=== PATIENT | male | born 1995 | race Hispanic/Latino ===

== ENCOUNTER 2016-08-15 13:23 | Observation (INO) | payer OTHER ==
[~2016-08-15] VITALS: Ht 177.8 cm; Wt 118.2 kg
[2016-08-15] VITALS (11 sets, daily range): BP systolic 115–143; BP diastolic 54–86; PULSE 72–123; RESP 10–24; O2SAT 97–100
[2016-08-15 14:36] LABS: BASOPHILS % (AUTO) 0.2 % (0-3); EOSINOPHILS % (AUTO) 0.2 % (0-5); MONOCYTES % (AUTO) 5.2 % (4-12); Mean Corpuscular Hemoglobin 29.2 pg (27.0-35.0); Mean Corpuscular Volume 82.5 fL (81-100); NEUTROPHILS % (AUTO) 81.9 % (40-74); Platelet Count 290 bil/L (150-400)
[2016-08-15 14:51] LABS: Magnesium 1.8 mg/dL (1.6-2.6)
[2016-08-15] MEDS ORDERED: Piperacillin-Tazo 3.375 Gm Inj 3.375 GM in Dextrose 5% Minibag Plus 50 ML IV ONE (16:10)
--- NOTE | 2016-08-15 16:12 | DRSVH ---
PROCEDURE: CT ABDOMEN AND PELVIS WITH CONTRAST ([id number]) INDICATIONS: rlq pain TECHNIQUE: After the administration of intravenous contrast, 5 mm thick sections acquired from the diaphragm to the symphysis. 5 mm coronal and sagittal reformats were acquired. For radiation dose reduction, the following was used: automated exposure control, adjustment of mA and/or kV according to patient siz e. COMPARISON: None. FINDINGS: Image quality: Excellent. ABDOMEN: Lung bases: Lung bases are clear. Heart size is normal. Solid organs: Liver and spleen are normal in size and enhancement. Gallbladder negative. Biliary s ystem is non dilated. Pancreas enhances normally. No adrenal nodules. Kidneys demonstrate normal s ize and enhancement, without hydronephrosis. Peritoneum and bowel: Mild cecal wall thickening is seen. The appendix is markedly enlarged measuring up to 16mm diameter, and there is periappendiceal fat stranding. No definite free air. There are mul tiple pedicles measuring up to 1.3 cm. No abscess is seen. Mild pericecal and right lower quadrant in flammatory stranding Nodes and vessels: No retroperitoneal or mesenteric adenopathy by size criteria. Aorta and inferior vena cava are normal in size. Miscellaneous: No ventral hernias. PELVIS: Genitourinary: Bladder wall thickness is normal. Miscellaneous: No inguinal hernias or adenopathy. Bones: No suspicious bony lesions. No vertebral body compression fractures. IMPRESSION: Acute appendicitis, with multiple associated large appendicoliths as detailed above. No f ree air or abscess. Findings were personally telephoned to Dr. Morales in the emergency department 1 611 hours 08/15/16 Dictated by: Gopi Irizarry M.D. on 08/15/2016 at 16:04 Approved by: Gopi Irizarry M.D. on 08/15/2016 at 16:11
[2016-08-15] MEDS ORDERED: 0.9% Sodium Chloride 1,000 ML IV SCH ×2 (16:25)
--- NOTE | 2016-08-15 16:32 | ED.REPORT ---
HPI-Abd Pain M Under 40 Date of Service Aug 15, 2016 ED Provider: Ronen Morales DO History of Present Illness: Patient is a 20 y.o. M otherwise healthy with a three day history of worsening abdominal pain. Pain localized to epigastrum and right upper quadrant, described as cramping type pain without radiation, rated 6/10, made better by throwing up, made worse by bending and putting pressure on stomach. Patient ahs tried ibuprofen with minimal relef. Denies blood in stool, constipation, diarrhea, fever, chills, night sweats, cough, runny nose, no reported sick contacts Nursing Notes Stated Complaint: STOMACH PAIN Chief Complaint: Male Abdominal Pain Allergies: Coded Allergies: No Known Allergies (Unverified , 08/15/16) No Active Prescriptions or Reported Meds General Time Seen by MD: 14:15 Chief Complaint Abdominal pain Hx Obtained From: Patient Arrived By: Walk-in Onset Occurred: 3 days ago Progression since Onset: Constant, Intermittent Location: : Abdomen upper Quality: Cramping Severity: Current: Pain level 6 out of 10 Severity: Maximum: Pain level 9 out of 10 Associated with: Reports: Anorexia, Nausea, Vomiting Past Medical History Past Medical History None reported Past Surgical History None reported Review of Systems Basic Review of Systems Eyes: Vision NL, No discharge ENT: Hearing NL, No pain, No nasal congestion, No pharyngeal pain Hematologic: No bleeding, No bruising Skin: No bruising, No rash, No itch Neurologic: NL mental status, No weakness, No numbness Psychiatric: Normal thought content Constitutional: Reports: Chills, Fatigue, Denies: Fever Respiratory: Denies: Dyspnea on exertion, Hemoptysis Cardiovascular: Denies: Chest pain GI: Reports: Abdominal pain (diffuse), Anorexia, Nausea, Denies: Bloody/tarry stool, Constipation, Diarrhea, Hematochezia, Melena, Rectal pain, Vomiting Complete sys rev & neg: except as marked. Physical Exam Initial Vital Signs Vital Signs (First) Date Time Temp Pulse Resp B/P Pulse Ox O2 Delivery O2 Flow Rate FiO2 08/15/16 13:28 36.3 72 10 138/81 99 Room Air Initial VS: Reviewed Head / Eyes: Atraumatic, Normocephalic, PERRL ENT: Mucous membranes moist, Conjunctiva normal, No scleral icterus Neck: Supple, Non-tender, Full range of motion Lymphatic: No lymphadenopathy Extremities: Vascular intact, Neuro intact, No swelling, No tenderness Skin: Warm, Dry, No cyanosis Neurologic: Alert, Oriented, Nonfocal Psychiatric: Mood/affect normal, Behavior normal, Normal thought content General/Constitutional: Awake, Alert, No acute distress, Well appearing Respiratory / Chest: Breath sounds NL, Breath sounds = bilat, No respiratory distress, No rales, No rhonchi, No wheezing, No stridor Cardiovascular: Heart rate NL, Regular rhythm, Heart sounds NL, Peripheral circulation NL Abdomen: Soft Tenderness/Guarding/Rebound: Positive: Guarding involuntary, Rebound diffuse, Tender RLQ... (Mild), Tender epigastric, Negative: Ruggiero's sign positive Organomegaly / Mass / Hernia: Negative: Hepatomegaly, Splenomegaly Interpretation & Diagnostics Lab Results Interpretation Result Diagram: 08/15/16 1415 08/15/16 1415 Test 08/15/16 14:15 08/15/16 15:11 White Blood Count 12.0th/mm3 (3.8-10.1) Red Blood Count 4.73mil/mm3 (4.40-5.80) Hemoglobin 13.8g/dL (13.8-17.2) Hematocrit 39.0% (41.0-50.0) Mean Corpuscular Volume 82.5fL (81-100) Mean Corpuscular Hemoglobin 29.2pg (27.0-35.0) Mean Corpuscular Hemoglobin Concent 35.4% (32.0-37.0) Red Cell Distribution Width 13.1% (12.3-15.4) Platelet Count 290bil/L (150-400) Neutrophils (%) (Auto) 81.9% (40-74) Lymphocytes (%) (Auto) 12.3% (14-46) Monocytes (%) (Auto) 5.2% (4-12) Eosinophils (%) (Auto) 0.2% (0-5) Basophils (%) (Auto) 0.2% (0-3) Sodium Level 140mEq/L (134-144) Potassium Level 4.0mEq/L (3.5-5.2) Chloride Level 100mEq/L (97-108) Carbon Dioxide Level 24mmol/L (18-29) Blood Urea Nitrogen 13mg/dL (6-20) Creatinine 0.58mg/dL (0.76-1.27) Estimat Glomerular Filtration Rate 186mL/min (>59) Glucose Level 151mg/dL (60-99) Calcium Level 8.9mg/dL (8.5-10.1) Magnesium Level 1.8mg/dL (1.6-2.6) Total Bilirubin 0.6mg/dL (0.0-1.2) Aspartate Amino Transf (AST/SGOT) 28U/L (0-50) Alanine Aminotransferase (ALT/SGPT) 36U/L (0-44) Alkaline Phosphatase 58U/L (25-150) Total Protein 7.6g/dL (6.4-8.4) Albumin 4.6g/dL (3.4-5.0) Lipase 17U/L (13-60) Hold Urine Received (Received) Re-Eval/Medical Decision Med Decision/Clinical Course Patient is a 20 y.o. M otherwise healthy with a three day history of worsening abdominal pain. Pain localized to epigastrum and right upper quadrant, described as cramping type pain without radiation, rated 6/10, made better by throwing up, made worse by bending and putting pressure on stomach. DDx Gastroenteritis, Apendicitis, constipation, IBS, pancreatitis CBC showed elevated white count 12 CMP, normal CT scan Abdomen and pelvis showed signs of acute apendicitis with fecoliths present in appendix. Attending note. I saw and personally examined this patient. On clinical exam he has right lower quadrant rebound with guarding. Highly suspicious for appendicitis. CT confirms the diagnosis. Patient will go to surgery. Consultation : Referral / Consult Name: NicMisha dominguez MD Consulted With: Surgeon Requested Call at: 04:20 Call Returned at: 04:25 Orthopedic Assistant: Will see patient, Agrees with eval, Requested OR, Accepts admit Differential Diagnosis: Positive: Appendicitis Patient Discharge & Departure Primary Impression: Acute appendicitis Disposition: ADMITTED TO HOSPITAL Referrals: NOPCP (PCP) Attending Statement The patient was seen and examined together with Dr. Eid on 08/15/16 and I have added additional information to the note above. JAZMÍN EID DO Aug 15, 2016 14:29 ORonen Khan DO Aug 15, 2016 17:57
[2016-08-15] MEDS ORDERED: HYDROmorphone 1 mg/mL Inj IM PRN (16:45)
[2016-08-15] MEDS ORDERED: fentaNYL-PF 50 mCg/mL 2 mL Inj ONE (17:15)
[2016-08-15] MEDS ORDERED: Ketamine 10 mg/mL 20 mL Inj ONE (17:15)
[2016-08-15] MEDS ORDERED: Remifentanil 1 mg/3 mL Inj ONE (17:15)
[2016-08-15] MEDS ORDERED: Ondansetron 2 mg/mL 2 mL Inj IVPUSH PRN ×2 (17:20→20:20)
--- NOTE | 2016-08-15 17:45 | NUR ---
Admit Nurse Note Admission assessment completed in the ER. Pt. c/o 12/14 abdominal pain, which he says is tolerable at this time. Girlfriend and relative at the bedside. Pt. is high risk for sleep apnea. Protocol to be initiated upon arrival to unit as pt. is waiting imminent surgery at this time. NKA verified. Pt. declines vaccination. Gordy Maciel notified of pt. condition. Addendum: 08/15/16 at 2128 by VIOLETTA WATSON RN Report given to Reena Godoy who states she will start oximetry per protocol.
--- NOTE | 2016-08-15 18:00 | HP ---
[address] [address] HISTORY AND PHYSICAL PATIENT: LAURA CAVAZOS : 1995 MR#: [id number] ADMIT: 08/15/2016 JOB ID: [id number] DATE OF SERVICE: 08/15/2016 REASON FOR CONSULTATION: The patient is seen in consultation at the request of Dr. Ronen Alvares regarding further evaluation and management of acute appendicitis. HISTORY OF PRESENT ILLNESS: The patient is a 20-year-old man who presented to the emergency department today with complaint of right lower quadrant abdominal pain. He tells me that he started feeling lousy yesterday but the pain became significantly intensified today. He has had anorexia as well. He came to the emergency department and was found to have a leukocytosis of 12. A CT scan of the abdomen and pelvis was obtained which I personally reviewed and shows a very dilated appendix with a number of fecaliths that suggests an acute appendicitis. PAST MEDICAL HISTORY: None. PAST SURGICAL HISTORY: None. MEDICATIONS: None. ALLERGIES: The patient has no known drug allergies. FAMILY HISTORY: Reviewed and unremarkable. REVIEW OF SYSTEMS: Positive for abdominal pain and anorexia and is otherwise negative. PHYSICAL EXAMINATION: The patient is afebrile temp 36.7 degrees, heart rate of 85 beats per minute, blood pressure 143/86. He is satting 99% on room air with a respiratory rate of 18 breaths per minute. In general, he appears mildly uncomfortable, in no acute distress. Cardiovascular: Regular rate and rhythm. No appreciated murmurs, rubs, gallops. Pulmonary: Lungs clear to auscultation bilaterally. Vascular: No carotid bruit. Neck: No thyromegaly. No cervical lymphadenopathy. GI: Abdomen is soft and nondistended. He has exquisite tenderness to palpation in the right lower quadrant. Extremities: Warm, without significant edema. Skin: Warm, without rash. Neuro: Grossly intact. Psych: Pleasant, appropriate. LABORATORIES: His white blood cell count is 12, his hematocrit is 39, his platelet count is 290. His creatinine is 0.58. Glucose was 151. ASSESSMENT/PLAN: This is a 20-year-old man with acute appendicitis with fecalith. I discussed the diagnosis with the patient with his family. I recommend laparoscopic appendectomy. The technical and convalescent aspects of surgery, as well as potential risks and complications, were reviewed. This will be done as soon as possible.
[2016-08-15] MEDS ORDERED: Lactated Ringer's 1,000 ML IV ONE ×2 (18:08→19:10)
--- NOTE | 2016-08-15 18:08 | PCM.HPANE ---
Patient Data Surgeon Admitting Provider:Misha Lucero MD Attending Provider:Misha Lucero MD Primary Care Physician:Fabian Other Provider:Charisse Garcia Anesthesia Reason for Visit Acute Appendicitis Ht/WT & BMI Height (Feet): 5 Height (Inches): 10 Weight (Kilograms): 118.18 Body Mass Index Allergies Coded Allergies: No Known Allergies (Unverified , 08/15/16) Past Anesthesia History Anesthesia History: Denies:: Abnormal Airway, Anesthesia Reactions, Difficult Intubation Diabetes History Hx Diabetes?: No MRSA MRSA: No Medications Hypertension Medication: No No Active Prescriptions or Reported Meds History History of ENT Problems?: No HEENT History: Denies:: Abnormal Airway Difficult Intubation Hx of Heart Problems?: No Cardiovascular History: Denies:: Congestive Heart Failure Hypertension Hx of Respiratory Problem?: No Respiratory History: Denies:: Tuberculosis Hx Neurologic Problems?: No Hx of GI Problems?: No Hx of Problems?: No Male Hx: Denies:: Prostate Problems Scrotal Mass Testicular Surgery Hx Musculoskeletal Problems?: No Hx of Psycho/Social Problems?: No Hx Surgeries?: No Hx Any Other Health Problems?: No Other History: Denies:: Cancer Hospitalization Thyroid Disease History Blood Transfusions: Positive for:: Accept Blood Products? Denies:: Blood Transfusions Hx Diabetes: No Hx Alcohol Use: Yes (occasional)Hx Substance Use: Yes (marijuana) Smoking Status: Never Smoker Have You Smoked inLast 12 mo: No Stop/Bang Treated for Sleep Apnea?: No Do You Have a CPAP Machine?: No S-Snoring: Do You Snore Loudly: Yes T-Tired: feel tired, fatigued: Yes O-Obsered: Observed not breath: Yes P-Blood Pressure: treated: No B- Body Mass Index > 35 kg/m2: No A- Age over 50: No N- Neck Large Circumference: Yes G- Gender Male: Yes BROOKLYNN Total Score: 5 BROOKLYNN Risk Assessment: High Risk, =/>3 Yes BROOKLYNN Category 4 OutPt Procedure: Yes Risk Assessment Category Category 1A: Patient has history of documented sleep apnea, and HAS NOT received any narcotic, sedative or anesthesia administration during this stay. Category 1B: Patient has history of documented sleep apnea, and HAS received any narcotic , sedative or anesthesia administration during this stay Category 2: Patient has SUSPECTED Obstructive Sleep Apnea, and HAS received any narcotic , sedative or anesthesia administration during this stay. Category 3: Patient has SUSPECTED Obstructive Sleep Apnea and HAS NOT received narcotic, sedative or anesthesia administration during this stay. Category 4: Outpatient in Procedural Areas with known sleep apnea or who screen positive for High Risk via the STOP/BANG questionnaire. Exam Exam Vital Signs Vital Signs Date Time Temp Pulse Resp B/P Pulse Ox O2 Delivery O2 Flow Rate FiO2 08/15/16 16:34 36.7 85 18 143/86 99 Room Air 08/15/16 13:28 36.3 72 10 138/81 99 Room Air General Appearance: Alert, Oriented X3, Cooperative, No Acute Distress HEENT/AIRWAY: MP 2 Lungs: Clear to Auscultation, Normal Air Movement Heart: Exam Unremarkable, Regular Rate/Rhythm, No Murmurs/Rubs/Gallops Meds/Labs/Diagnostics Admission Meds Current Medications Piperacillin Sod/ Tazobactam Sod 3.375 gm/Dextrose/ Water 50 ml @ 100 mls/hr ONCE ONCE IV Last administered on 08/15/16 16:36; Start 08/15/16 at 16:10; Stop 08/15/16 at 16:39; Status DC Sodium Chloride 1,000 ml @ 0 mls/hr Q0M IV Last administered on 08/15/16 16:30 ; Start 08/15/16 at 16:25 Sodium Chloride (Normal Saline) 1,000 ml @ 200 mls/hr Q5H IV Last administered on 08/15/16 17:10; Start 08/15/16 at 16:25 Labs Test 08/15/16 14:15 08/15/16 15:11 White Blood Count 12.0th/mm3 (3.8-10.1) Red Blood Count 4.73mil/mm3 (4.40-5.80) Hemoglobin 13.8g/dL (13.8-17.2) Hematocrit 39.0% (41.0-50.0) Mean Corpuscular Volume 82.5fL (81-100) Mean Corpuscular Hemoglobin 29.2pg (27.0-35.0) Mean Corpuscular Hemoglobin Concent 35.4% (32.0-37.0) Red Cell Distribution Width 13.1% (12.3-15.4) Platelet Count 290bil/L (150-400) Neutrophils (%) (Auto) 81.9% (40-74) Lymphocytes (%) (Auto) 12.3% (14-46) Monocytes (%) (Auto) 5.2% (4-12) Eosinophils (%) (Auto) 0.2% (0-5) Basophils (%) (Auto) 0.2% (0-3) Sodium Level 140mEq/L (134-144) Potassium Level 4.0mEq/L (3.5-5.2) Chloride Level 100mEq/L (97-108) Carbon Dioxide Level 24mmol/L (18-29) Blood Urea Nitrogen 13mg/dL (6-20) Creatinine 0.58mg/dL (0.76-1.27) Estimat Glomerular Filtration Rate 186mL/min (>59) Glucose Level 151mg/dL (60-99) Calcium Level 8.9mg/dL (8.5-10.1) Magnesium Level 1.8mg/dL (1.6-2.6) Total Bilirubin 0.6mg/dL (0.0-1.2) Aspartate Amino Transf (AST/SGOT) 28U/L (0-50) Alanine Aminotransferase (ALT/SGPT) 36U/L (0-44) Alkaline Phosphatase 58U/L (25-150) Total Protein 7.6g/dL (6.4-8.4) Albumin 4.6g/dL (3.4-5.0) Lipase 17U/L (13-60) Hold Urine Received (Received) Plan Impression Patient chart reviewed, patient interviewed and anesthestic plan with risks, benefits, and alternatives discussed, and informed consent obtained. ASA Physical Status: ASA3 Plus Emergency (bmi 37) Anesthetic Plan: GA Bene/Risks/Altern/Consents: Yes HP Complete Prior to Induction: Yes Yoav Vasquez MD Aug 15, 2016 18:08
[2016-08-15] MEDS ORDERED: Bupivacaine-MPF 0.5% W/EPI 30 mL Inj INFILTRATE ONE (19:49)
[2016-08-15] MEDS ORDERED: Sodium Chloride LOK Flush 10 mL Syringe IVFLUSH PRN (20:20)
[2016-08-15] MEDS: Dextrose 5% Lactated Ringer's 1,000 ML IV SCH (21:19)
--- NOTE | 2016-08-15 21:29 | OP ---
[address] [address] OPERATIVE REPORT PATIENT: LAURA CAVAZOS : 1995 MR#: [id number] ADMIT: 08/15/2016 JOB ID: [id number] DATE OF SURGERY: 08/15/2016 ANESTHESIA: General. PREOPERATIVE DIAGNOSIS(ES): Acute appendicitis. POSTOPERATIVE DIAGNOSIS(ES): Acute nonperforated appendicitis. OPERATION: Laparoscopic appendectomy. SURGEON: Dr. Misha Lucero. INGOT BUGGY OPERATOR: Stas Domingo PA-C (the medical billing assistant was required for safe and timely completion of the case) and Dot Manzanares. COMPLICATIONS: None. ESTIMATED BLOOD LOSS: Minimal. CONDITION: Satisfactory. SPECIMEN: Appendix. FINDINGS: The appendix was obviously acutely inflamed, containing fecaliths but was not perforated. INDICATION/SIGNIFICANT HISTORY: The patient is a 20-year-old man who presents to the emergency department with complaint of abdominal pain. He was found to have leukocytosis and CT scan findings suggestive of acute appendicitis with three fecaliths in the base of the appendix. OPERATIVE TECHNIQUE: The patient was taken to the operating room and placed in supine position. General anesthesia was administered. Preoperative antibiotics were given. The abdomen was prepped and draped in standard surgical fashion. A procedural pause was performed. Entry was gained into the abdomen through a 5 mm Optiview trocar in the supraumbilical location. Pneumoperitoneum was achieved without complication. Local anesthetic was injected, followed by insertion of 5 mm ports in the left lower quadrant and one in the suprapubic region. Eventually, the suprapubic port was upsized to a 12 mm port. The appendix was easily visualized and acutely inflamed. The window was made at the base of the appendix through the mesoappendix. The appendix was then stapled up with the ROE 45 blue load. The mesoappendix was then stapled with a white load. There was a little bit of bleeding on the mesoappendix staple line which was controlled with electrocautery. The surgical bed was then irrigated and found to be hemostatic. The appendix was placed in an EndoCatch bag and removed through the 10 mm port site. The ports were then removed and pneumoperitoneum released. The skin was closed using 4-0 Monocryl. The entire procedure was well tolerated without complication.
[2016-08-15] MEDS: oxyCODONE-Acetamin 5-325 mg Tablet PO PRN (23:13)
[2016-08-16 00:19] VITALS: BP 107/58; PULSE 94; RESP 20; O2SAT 98
--- NOTE | 2016-08-16 01:49 | NUR ---
Arrival to unit Patient arrived to unit approx 2114 from PACU. Patient was sleepy, but easy to arouse, and was able to answer questions appropriately and follow commands. Patient was able to ambulate with SBA to hospital bed. Pt denies any pain at arrival, and during initial assessment. IV in Left AC is patent and has D5 LR @ 125/ hr infusing. CASER SHOE PARTS applied due to high BROOKLYNN score; patient is on RA. Urinal is being used for voiding. All 3 laparoscopic sites have steri strips, and band aids. Only the umbilical lap site presents with sanguinous drainage. Patient is tolerating ice chips, water, and jello. Call light within reach, and bed is locked and in low position. Will continue to monitor, and continue Q 1 hour checks.
[2016-08-16] MEDS: Dextrose 5% Lactated Ringer's 1,000 ML IV SCH (04:32)
[2016-08-16 04:49] VITALS: BP 119/68; PULSE 95; RESP 20; O2SAT 97
[2016-08-16] MEDS: oxyCODONE-Acetamin 5-325 mg Tablet PO PRN ×3 (05:02→12:41)
[2016-08-16 05:30] LABS: Mean Corpuscular Volume 83.7 fL (81-100)
[2016-08-16] MEDS ORDERED: OXYC1TAB24 PO (10:24)
--- NOTE | 2016-08-16 10:28 | PCM.DISURG ---
Surgical Discharge Instruction Date of Service Aug 16, 2016 Dates of Hospitalization Date of Hospital Admission Aug 15, 2016 at 17:14 Providers Admitting Physician: Misha Lucero MD Primary Care Physician: Nopcp Attending Physician: Misha Lucero MD Discharge Diagnosis Discharge Diagnosis Acute appendicitis Post Operative diagnosis Acute appendicitis s/p appendectomy Diet Discharge Diet: No restrictions Activity Discharge Activity-General: Try not to overdue, Be up and about, Balance rest and activity, Ice incision 3-5 time/day for 20min Dressing and Incisional Care Dressing Care: Keep dressing clean, dry & intact, Allow Steri Stripes to fall off Hygiene: May shower, DO NOT soak incision under water, NO bathtub, hot tub or whirlpool Additional Instructions Discharge Instructions take your pain medication sparingly only as needed. Follow Up Plan Follow Up Plan Follow up with surgical physicians warehouse administrative assistant in 2-3 weeks, please call the surgery clinic to schedule appointment Follow-up appointment: Weeks (2-3) Call your provider for: Fever, Chills, Shortness of breath, Increasing abdominal pain, Nausea, Vomiting, Wound redness, Increasing wound pain, Warmth to touch, Discharge @ incision, pus discharge Brandin Queen DO Aug 16, 2016 10:28
--- NOTE | 2016-08-16 10:38 | PCM.DC.SUR ---
Discharge Summary Date of Service: Aug 16, 2016 Date of Hospital Admission: Aug 15, 2016 at 17:14 Date of Operation(s): 08/15/16 Date of Discharge: 08/16/16 Diagnosis at Time of Discharge acute appendicitis s/p appendectomy Problems: (1) Acute appendicitis Status: Acute ICD Code: K35.80 Operation Laparoscopic appendectomy Brief History and Physical: Taken from HISTORY OF PRESENT ILLNESS composed by Dr. Misha Lucero on 08/15/16 The patient is a 20-year-old man who presented to the emergency department today with complaint of right lower quadrant abdominal pain. He tells me that he started feeling lousy yesterday but the pain became significantly intensified today. He has had anorexia as well. He came to the emergency department and was found to have a leukocytosis of 12. A CT scan of the abdomen and pelvis was obtained which I personally reviewed and shows a very dilated appendix with a number of fecaliths that suggests an acute appendicitis. Gen: pleasant cooperative young man A/O x3 in NAD HEENT: PERRL, EOMI, mucous membranes pink and moist Neck: Supple non tender, full ROM CV: RRR no murmurs rubs or gallops Resp: Lungs CTA BL, no wheezes rales or rhonchi Abd: Laparoscopic incisions without erythema, purulence, or drainage. appropriate post surgical tenderness Extr: no cyanosis clubbing or edema Neuro: CN 2-12 grossly intact, no focal neurologic deficit Psych: appropriate mood and affect. Hospital Course: Patient with CT findings as described above indicative of acute appendicitis requiring surgical intervention. He underwent uncomplicated laparoscopic appendectomy as described in the operative note. He had no issues in the recovery period and was discharged in good condition with a tolerable amount of pain on PO analgesia. Pathology: Path pending. Disposition: Home with no needs Follow-up Plan: Follow up with surgical physicians physician assistant primary care in 2-3 weeks. oxyCODONE-Acetaminophen 5-325 mg (oxyCODONE-Acetaminophen 5-325 mg) 1 Each Tablet 1-2 TAB PO Q6H PRN PRN For Pain Brandin Queen DO Aug 16, 2016 10:38
--- NOTE | 2016-08-16 11:03 | NUR ---
Social Work Discharge and Screen Note: SW acknowledged order for discharge. SW met with patient at bedside to discuss discharge plan. Patient is a 20 year old male admitted on 08/15/16 for acute appendicitis. Patient payer as [facility]. Patient has no senior care disability nor VA benefits. Patient states having no PCP history. Patient states residing in single story home with mother Shefali, . Patient has no previous HHC, SNF, DME, or AD history. Patient states pharmacy of choice as [facility]. Patient states being independent with needs and has no identified discharge needs at this time. SW to follow. PLAN:Home with mother via POV, pending clinical course Ayad NASH
--- NOTE | 2016-08-16 11:41 | PROG NOTE ---
[address] [address] PROGRESS NOTE PATIENT: LAURA CAVAZOS : 1995 MR#: [id number] ADMIT: 08/15/2016 JOB ID: [id number] DATE: 08/16/2016 SUBJECTIVE: The patient was seen postoperative day one. The patient underwent a laparoscopic appendectomy for acute nonperforated appendicitis last night. The case was uneventful. It was so late that I elected to keep him overnight. This morning he tells me he is feeling much better. OBJECTIVE: He has remained afebrile since surgery. He is hemodynamically normal this morning. He appears alert, oriented and comfortable. His abdomen is soft, nontender, nondistended. His incisions look fine. His white blood cell count is the same at 12.1. Hematocrit stable at 38.4. ASSESSMENT AND PLAN: This is a 20-year-old male, postoperative day one from laparoscopic appendectomy for acute nonperforated appendicitis. He is doing well. He can go home with pain medicines. He will follow up with surgical PA in the next two weeks.
--- NOTE | 2016-08-16 12:42 | NUR ---
Discharge Patient discharged home with family. Hard copy prescription given for pain med. Pt given verbal and written instructions and agreed to understanding them. Pt will call surgeons office to schedule follow up appointment as directed. Pt had all belongings with him.
--- NOTE | 2016-08-19 06:46 | PCM.ANEP1 ---
Post Anesthesia Phase 1 PACU Phase 1 Assessment Anesthetic Administered: GA Level of Alertness: Awake, talking KUMARI's with Equal Strength: No Pain: Yes (4) Pain Scale Score: 2 Nausea or Vomiting: No Oxygen Delivery: Simple Mask Lungs: Clear to Auscultation, Normal Air Movement Dermatome Level: Full Sensation Yoav Vasquez MD Aug 19, 2016 06:46
--- NOTE | 2016-08-19 06:46 | PCM.ANEP2 ---
Post Anesthesia Evaluation ASA/CMS Post Anesthesia VS in Patient's Normal Range?: Yes Resp Stable; Airway Patent?: Yes CV Function & Hydration Stable: Yes Mental Status Recovered?: Yes Pain control Satisfactory?: Yes N/V Control Satisfactory?: Yes Yoav Vasquez MD Aug 19, 2016 06:46
--- NOTE | 2016-08-20 10:00 | PATH ---
SURGICAL PATHOLOGY Attending Physician:Misha Lucero MD CASE STATUS: Signed Out PATIENT NAME: LAURA CAVAZOS PID: [id number] : 1995 DATE COLLECTED:08/15/2016 00:00 SPECIMEN: Appendix CLINICAL HISTORY: ACUTE APPENDICITIS 1). APPENDIX FINAL DIAGNOSIS: 1.APPENDIX: ACUTE APPENDICITIS. ICD10 CODE K35.80 GROSS DESCRIPTION: Received in formalin, labeled with the patient' s name and "appendix", is one appendix with attached fatty tissue. The appendix measures 7.0 x 1.5 x 1.5 cm. The serosal surface is smooth and glistening. Upon sectioning, the wall measures 0.1 cm in thickness with a lumen distended to 0.9 cm in diameter. At one end is a firm, impacted, stone-like fecalith measuring 1.5 x 0.9 x 0.9 cm. Atg Architect sections are submitted in cassettes 1A and 1B. ([id number]) MICRO DESCRIPTION: See diagnosis. ICD-9 CODES: CPT CODES: 1: 17351 Electronically Signed Out John Bradford MD [facility] [address], [place] [address] Technical component performed at [facility], [address] [place] [address] [address], [address]
== END 2016-08-16 11:30 | disposition home or self-care (01) ==
LOC: SED 13:23 → OSC 17:14
PROVIDERS: ADMIT General Practice; ATTEND General Practice
DX: K35.80 Unspecified acute appendicitis (principal)
CPT/HCPCS: 36415; 44970; 74177; 80053; 83690; 83735; 85025; 85027; 96365; 96372; 96375; 99285; G0378; J0690; J1170; J2250; J2405; J2543; J3010; J7030; J7120; Q9967